=== PATIENT | male | born 1955 | race African-American/Black ===

== ENCOUNTER 2018-03-27 21:23 | Observation (INO) ==
[2018-03-27] MEDS ORDERED: ASPIRIN EC 325 MG TABLET PO STA (22:01)
[2018-03-27] MEDS ORDERED: NITROGLYCERIN SL 0.4 MG TABLET SL STA (22:10)
[2018-03-27 22:12] LABS: Basophils % 0.6 % (0.0-0.8); Eosinophils # 0.3 10*3/uL (0.0-0.87); Hematocrit 32.4 VOL% (42.0-52.0); Hemoglobin 10.1 GM/DL (14.0-18.0); Immature Granulocytes % 0.4 %; Immature Granulocytes Absolute 0.03 #; Lymphocytes # 1.4 10*3/uL (1.4-4.0); Lymphocytes % 19.7 % (21.2-54.2); Mean Corpuscular HGB Conc 31.2 GM/DL (32-36); Mean Corpuscular Hemoglobin 27 PG (27-34); Mean Corpuscular Volume 85.3 FL (87-102); Mean Platelet Volume 11.3 FL (9.6-12.0); Monocytes # 0.5 10*3/uL (0.11-0.8); Monocytes % 7.9 % (1.7-12.7); Neutrophils # 4.6 10*3/uL (1.4-7.4); Neutrophils % 66.4 % (38.7-73.9); Platelet Count 233 T/CUMM (130-400); Red Cell Distribution Width 18.3 % (9.3-17.3); White Blood Count 6.9 T/CUMM (4-12)
[2018-03-27 22:39] LABS: Alanine Aminotransferase 17 U/L (16-61); Alkaline Phosphatase 75 U/L (45-117); Aspartate Amino Transferase 22 U/L (0-37); Bilirubin,Total < 0.39 MG/DL (0.2-1.0); Blood Urea Nitrogen 15 MG/DL (7-18); Calcium 8.6 MG/DL (8.5-10.1); Glucose 130 MG/DL (74-106); Osmolality,Calculated 277.7 MOS/KG (273-304); Potassium 4.3 MMOL/L (3.5-5.1); Sodium 138 MMOL/L (136-145); Total Protein 6.9 G/DL (6.4-8.3)
[2018-03-27 22:41] LABS: Troponin I 0.052 NG/ML (0.00-0.045)
[2018-03-27] MEDS ORDERED: ACETAMINOPHEN 325 MG TABLET PO PRN (22:57)
[2018-03-27] MEDS ORDERED: MORPHINE 4 MG/1 ML VIAL IV PRN (22:57)
[2018-03-27] MEDS ORDERED: ONDANSETRON 4 MG/2 ML VIAL IV PRN (22:57)
[2018-03-27] MEDS ORDERED: DEXTROSE 50% 25 GM/50 ML VIAL IV PRN (23:06)
[2018-03-27] MEDS ORDERED: GLUCAGON 1 MG VIAL IM PRN (23:06)
[2018-03-27 23:23] LABS: Risk Ratio 2.34; VLDL CHOLESTEROL 14.4 MG/DL
[2018-03-28] MEDS: NITROGLYCERIN 2% OINT 1 INCH/GM PACK TOP SCH ×2 (01:19→06:42)
[2018-03-28] MEDS ORDERED: INSULIN REGULAR 100 UNIT/ML SUBCUT SCH (07:30)
[2018-03-28 07:56] VITALS: BP 172/87
[2018-03-28] MEDS ORDERED: hydrALAZINE 20 MG/1 ML VIAL IV PRN (08:18)
[2018-03-28] MEDS ORDERED: ISOSORBIDE MONONITRATE 30 MG TABLET PO SCH (09:00)
[2018-03-28] MEDS ORDERED: CLOPIDOGREL 75 MG TABLET PO SCH (09:00)
[2018-03-28] MEDS ORDERED: ASPIRIN EC 81 MG TABLET PO SCH (09:00)
[2018-03-28] MEDS ORDERED: CARVEDILOL 6.25 MG TABLET PO SCH (09:00)
[2018-03-28] MEDS ORDERED: ASPIRIN EC 325 MG TABLET PO SCH (09:00)
[2018-03-28] MEDS ORDERED: ENOXAPARIN 40 MG/0.4 ML SYRINGE SUBCUT SCH (09:00)
[2018-03-28] MEDS ORDERED: LOSARTAN 50 MG TABLET PO SCH (09:00)
[2018-03-28] MEDS ORDERED: PRAVASTATIN 40 MG TABLET PO SCH (21:00)
== END 2018-03-28 10:56 ==
LOC: N.ED 21:23 → N.EDINP 21:23 → N.TELEN 23:32
PROVIDERS: ADMIT Internal Medicine; ATTEND Internal Medicine

== ENCOUNTER 2020-08-20 10:11 | Inpatient (IN) ==
[2020-08-20 11:48] LABS: Amorphous Crystals,Urine Occasional /HPF (Few); Bilirubin,Urine Negative (Negative); Blood, Urine Large mg/dL (Negative); Glucose,Urine (UA) Negative (Negative); Hyaline Casts,Urine 15 /LPF (0-3); Ketones,Urine Negative (Negative); Nitrite,Urine Negative (Negative); Protein,Urine >=500 MG/DL; RBC,Urine 474 /HPF (0-4); Squamous Epithelial Cell,Urine Occasional /HPF (0-10); Urine Appearance CLOUDY (Clear); Urine Color Amber (Yellow); Urine Specific Gravity 1.023 (1.001-1.035)
[2020-08-20 12:08] LABS: Barbiturates Screen,Urine Negative (Negative); Benzodiazepines Screen,Urine Negative (Negative); Cannabinoid Screen,Urine Negative (Negative); Opiate Screen,Urine Negative (Negative); Phencyclidine Screen,Urine Negative (Negative)
[2020-08-20 12:36] LABS: Basophils % 0.1 % (0.0-0.8); Hematocrit 30.2 VOL% (42.0-52.0); Hemoglobin 9.1 GM/DL (14.0-18.0); Immature Granulocytes % 0.7 %; Immature Granulocytes Absolute 0.05 #; Lymphocytes # 0.7 10*3/uL (1.4-4.0); Lymphocytes % 9.7 % (21.2-54.2); Mean Corpuscular HGB Conc 30.1 GM/DL (32-36); Mean Corpuscular Volume 96.5 FL (87-102); Mean Platelet Volume 11.4 FL (9.6-12.0); Monocytes % 5.2 % (1.7-12.7); Neutrophils % 84.3 % (38.7-73.9); Platelet Count 255 T/CUMM (130-400); Red Blood Count 3.13 MC/CUMM (3.8-5.5); Red Cell Distribution Width 18.5 % (9.3-17.3); White Blood Count 6.7 T/CUMM (4-12)
[2020-08-20 12:56] LABS: Alanine Aminotransferase 17 U/L (16-61); Albumin 3.6 G/DL (3.4-5.0); Alkaline Phosphatase 73 U/L (45-117); Aspartate Amino Transferase 17 U/L (0-37); Bilirubin,Total < 0.39 MG/DL (0.2-1.0); Blood Urea Nitrogen 33 MG/DL (7-18); Carbon Dioxide 24 MMOL/L (21-32); Estimated Glom Filtration Rate 35 ML/MIN; Glucose 95 MG/DL (74-106); INR 1.1; Osmolality,Calculated 274.2 MOS/KG (273-304); PT Patient Result 11.9 SECS (9.8-11.9); Partial Thromboplastin Time 28.5 SECS (23.9-33.8); Sodium 134 MMOL/L (136-145); Total Protein 7.8 G/DL (6.4-8.3)
[2020-08-20 13:01] LABS: Potassium 6.4 MMOL/L (3.5-5.1)
[2020-08-20 13:02] LABS: ABG Base Excess -1.7 MMOL/L (-2.5-2.5); ABG Oxygen Saturation 99.5 % (95-100); ABG TCO2 28.7 MMOL/L (23-27)
[2020-08-20] MEDS ORDERED: SODIUM BICARBONATE 50 MEQ/50 ML VIAL IV STA (13:05)
[2020-08-20] MEDS ORDERED: DEXTROSE 50% 25 GM/50 ML VIAL IV STA (13:05)
[2020-08-20] MEDS ORDERED: INSULIN REGULAR 100 UNIT/ML IV STA (13:05)
[2020-08-20] MEDS ORDERED: SODIUM CHLORIDE 0.9% 1,000 ML IV STA (13:06)
[2020-08-20 13:07] LABS: ABG PH 7.119 (7.35-7.45)
[2020-08-20 13:08] LABS: ABG PCO2 92.1 MM HG (35-48)
[2020-08-20 13:12] LABS: Platelet Estimate Normal
[2020-08-20 13:13] LABS: Anisocytosis 2+; Macrocytosis 1+; Ovalocytes Few
[2020-08-20] MEDS ORDERED: ONDANSETRON 4 MG/2 ML VIAL IV PRN (14:11)
[2020-08-20] MEDS ORDERED: ALBUTEROL 2.5 MG/3 ML NEB RESP TX PRN (14:11)
[2020-08-20] MEDS ORDERED: FUROSEMIDE 40 MG/4 ML VIAL IV STA (14:15)
[2020-08-20 15:27] LABS: ABG Base Excess -0.4 MMOL/L (-2.5-2.5); ABG Oxygen Saturation 95.3 % (95-100); ABG PCO2 43.2 MM HG (35-48); ABG PH 7.369 (7.35-7.45); ABG PO2 78.6 MM HG (80-95); ABG TCO2 23.1 MMOL/L (23-27)
[2020-08-20] MEDS: ENOXAPARIN 30 MG/0.3 ML SYRINGE SUBCUT SCH (17:00)
[2020-08-20] MEDS: PANTOPRAZOLE 40 MG VIAL IV SCH (17:05)
[2020-08-20 20:52] LABS: ABG Base Excess -1.4 MMOL/L (-2.5-2.5); ABG HCO3 23.2 MMOL/L (20-26); ABG Oxygen Saturation 98.9 % (95-100); ABG PCO2 67.8 MM HG (35-48); ABG PH 7.217 (7.35-7.45); Allen Test Positive; Pt O2 Delivery Device BIPAP
[2020-08-20 21:24] LABS: Alanine Aminotransferase 19 U/L (16-61); Albumin 3.7 G/DL (3.4-5.0); Alkaline Phosphatase 78 U/L (45-117); Aspartate Amino Transferase 22 U/L (0-37); Bilirubin,Total < 0.39 MG/DL (0.2-1.0); Blood Urea Nitrogen 38 MG/DL (7-18); Calcium 8.3 MG/DL (8.5-10.1); Carbon Dioxide 26 MMOL/L (21-32); Estimated Glom Filtration Rate 32 ML/MIN; Glucose 82 MG/DL (74-106); Osmolality,Calculated 280.8 MOS/KG (273-304); Sodium 137 MMOL/L (136-145); Total Protein 8.5 G/DL (6.4-8.3)
[2020-08-20 21:29] LABS: Potassium 6.1 MMOL/L (3.5-5.1)
[2020-08-20] MEDS ORDERED: MAGNESIUM SULF RIDER 4 GM in PREMIX 1 EACH IV PRN (21:47)
[2020-08-20] MEDS ORDERED: MAGNESIUM SULF RIDER 2 GM in PREMIX 1 EACH IV PRN (21:47)
[2020-08-20] MEDS ORDERED: DEXTROSE 50% 25 GM/50 ML VIAL IV PRN (21:48)
[2020-08-20] MEDS ORDERED: CALCIUM GLUCONATE IV ONE (21:50)
[2020-08-20] MEDS ORDERED: SODIUM BICARB IV ONE (21:50)
[2020-08-20] MEDS ORDERED: INSULIN REGULAR IV ONE (21:50)
[2020-08-20] MEDS ORDERED: [UNRECOGNIZED DRUG - OTHER] IV ONE (21:50)
[2020-08-20 21:56] LABS: ABG Base Excess -1.3 MMOL/L (-2.5-2.5); ABG HCO3 23.3 MMOL/L (20-26); ABG Oxygen Saturation 97.3 % (95-100); ABG TCO2 26.8 MMOL/L (23-27); Allen Test Positive; Pt O2 Delivery Device BIPAP
[2020-08-20 22:02] LABS: ABG PCO2 73.5 MM HG (35-48); ABG PH 7.194 (7.35-7.45)
[2020-08-20] MEDS ORDERED: ETOMIDATE 20 MG/10 ML VIAL IV ONE ×2 (22:03→22:15)
[2020-08-20] MEDS ORDERED: ROCURONIUM 100 MG/10 ML VIAL IV ONE ×2 (22:03→22:16)
[2020-08-20 23:37] LABS: Allen Test Positive; Pt O2 Delivery Device Ventilator
[2020-08-20 23:40] LABS: ABG Base Excess 3.1 MMOL/L (-2.5-2.5); ABG HCO3 27.2 MMOL/L (20-26); ABG PCO2 33.9 MM HG (35-48); ABG PH 7.497 (7.35-7.45); ABG TCO2 24.2 MMOL/L (23-27)
[2020-08-21] MEDS: PHENYLEPHRINE DRIP 40 MG/250 ML PREMIX IV PRN (00:34)
[2020-08-21] MEDS: ATROPINE 1 MG/10 ML SYRINGE IV PRN (01:12)
[2020-08-21] MEDS ORDERED: ATROPINE 1 MG/10 ML SYRINGE ONE (01:12)
[2020-08-21 01:33] LABS: Albumin 3.3 G/DL (3.4-5.0); Bilirubin,Total 0.5 MG/DL (0.2-1.0); Calcium 8.4 MG/DL (8.5-10.1); Osmolality,Calculated 282.8 MOS/KG (273-304); Potassium 5.1 MMOL/L (3.5-5.1); Thyroid Stimulating Hormone 48.5 uIU/ml (0.358-3.74); Total Protein 7.3 G/DL (6.4-8.3)
[2020-08-21] MEDS: MIDAZOLAM 100 MG in SODIUM CHLORIDE 0.9% 80 ML IV PRN ×2 (02:59→23:39)
[2020-08-21] MEDS ORDERED: ETOMIDATE 20 MG/10 ML VIAL IV ONE ×2 (04:44→04:50)
[2020-08-21] MEDS ORDERED: ROCURONIUM 100 MG/10 ML VIAL IV ONE ×2 (04:45→04:52)
[2020-08-21 06:48] LABS: Basophils % 0.3 % (0.0-0.8); Eosinophils % 0.3 % (0.00-10.9); Hematocrit 27.8 VOL% (42.0-52.0); Hemoglobin 8.8 GM/DL (14.0-18.0); Immature Granulocytes % 0.9 %; Immature Granulocytes Absolute 0.08 #; Lymphocytes # 1.2 10*3/uL (1.4-4.0); Lymphocytes % 12.6 % (21.2-54.2); Mean Corpuscular HGB Conc 31.7 GM/DL (32-36); Mean Corpuscular Volume 90.6 FL (87-102); Mean Platelet Volume 11.6 FL (9.6-12.0); Monocytes % 6.1 % (1.7-12.7); Neutrophils % 79.8 % (38.7-73.9); Platelet Count 342 T/CUMM (130-400); Red Blood Count 3.07 MC/CUMM (3.8-5.5); Red Cell Distribution Width 18.6 % (9.3-17.3); White Blood Count 9.4 T/CUMM (4-12)
[2020-08-21 07:15] LABS: Eosinophils 1 % (0-10); Hypochromasia 1+; Lymphocytes 9 % (20-55); Microcytosis 1+; Ovalocytes Slight; Platelet Estimate Adequate; Segmented Neutrophils 84 % (50-85); Total Cells Counted 100
[2020-08-21] MEDS: CLOPIDOGREL 75 MG TABLET PO SCH (11:30)
[2020-08-21] MEDS: HYDROCORTISONE 100 MG VIAL IV SCH ×2 (11:32→18:37)
[2020-08-21] MEDS: LEVOTHYROXINE 100 MCG VIAL IV SCH (11:34)
[2020-08-21] MEDS ORDERED: MIDAZOLAM 2 MG/2 ML VIAL IV ONE (14:50)
[2020-08-21] MEDS ORDERED: MIDAZOLAM 2 MG/2 ML VIAL ONE (14:54)
[2020-08-21] MEDS: PANTOPRAZOLE 40 MG VIAL IV SCH (15:56)
[2020-08-21] MEDS: ENOXAPARIN 30 MG/0.3 ML SYRINGE SUBCUT SCH (15:56)
[2020-08-21] MEDS: INSULIN REGULAR 100 UNIT/ML SUBCUT SCH ×2 (20:14→23:42)
[2020-08-21] MEDS: AMIODARONE 200 MG TABLET PO SCH (20:15)
[2020-08-21] MEDS: MORPHINE 4 MG/1 ML VIAL IV PRN (23:50)
[2020-08-22] MEDS: HYDROCORTISONE 100 MG VIAL IV SCH ×3 (02:12→18:11)
[2020-08-22] MEDS: INSULIN REGULAR 100 UNIT/ML SUBCUT SCH ×5 (04:02→19:33)
[2020-08-22 04:35] LABS: Basophils % 0.1 % (0.0-0.8); Eosinophils % 0.2 % (0.00-10.9); Hematocrit 27.4 VOL% (42.0-52.0); Hemoglobin 8.2 GM/DL (14.0-18.0); Immature Granulocytes % 0.6 %; Immature Granulocytes Absolute 0.05 #; Lymphocytes # 0.7 10*3/uL (1.4-4.0); Lymphocytes % 8.5 % (21.2-54.2); Mean Corpuscular HGB Conc 29.9 GM/DL (32-36); Mean Corpuscular Volume 93.8 FL (87-102); Monocytes % 7.2 % (1.7-12.7); Neutrophils % 83.4 % (38.7-73.9); Platelet Count 362 T/CUMM (130-400); Red Blood Count 2.92 MC/CUMM (3.8-5.5); Red Cell Distribution Width 18.9 % (9.3-17.3); White Blood Count 8.1 T/CUMM (4-12)
[2020-08-22 04:55] LABS: ABG Base Excess 4.5 MMOL/L (-2.5-2.5); ABG HCO3 28.5 MMOL/L (20-26); ABG Oxygen Saturation 98.7 % (95-100); ABG PCO2 36.5 MM HG (35-48); ABG PH 7.493 (7.35-7.45); ABG TCO2 26.1 MMOL/L (23-27)
[2020-08-22 05:21] LABS: Calcium 8.2 MG/DL (8.5-10.1); Osmolality,Calculated 286.4 MOS/KG (273-304); Potassium 4.2 MMOL/L (3.5-5.1)
[2020-08-22] MEDS: LEVOTHYROXINE 100 MCG VIAL IV SCH (06:01)
[2020-08-22] MEDS: MORPHINE 4 MG/1 ML VIAL IV PRN (07:12)
[2020-08-22] MEDS ORDERED: INFLUENZA VIRUS VACCINE 0.5 ML SYRINGE IM ONE (07:15)
[2020-08-22] MEDS: AMIODARONE 200 MG TABLET PO SCH ×2 (08:16→21:53)
[2020-08-22] MEDS: CLOPIDOGREL 75 MG TABLET PO SCH (08:16)
[2020-08-22] MEDS: MIDAZOLAM 100 MG in SODIUM CHLORIDE 0.9% 80 ML IV PRN ×2 (11:37→21:50)
[2020-08-22] MEDS: fentaNYL INJ 1,250 MCG in SODIUM CHLORIDE 0.9% 225 ML IV PRN (14:00)
[2020-08-22] MEDS: PANTOPRAZOLE 40 MG VIAL IV SCH (14:01)
[2020-08-22] MEDS: ENOXAPARIN 30 MG/0.3 ML SYRINGE SUBCUT SCH (14:01)
[2020-08-22] MEDS: PHENYLEPHRINE DRIP 40 MG/250 ML PREMIX IV PRN (19:01)
[2020-08-22] MEDS: ATROPINE 1 MG/10 ML SYRINGE IV PRN (19:48)
[2020-08-22] MEDS: DOPamine 800 MG/250 ML PREMIX IV PRN (21:14)
[2020-08-22 21:22] LABS: Calcium 8.5 MG/DL (8.5-10.1); Osmolality,Calculated 291.1 MOS/KG (273-304); Potassium 4.2 MMOL/L (3.5-5.1)
[2020-08-23] MEDS: INSULIN REGULAR 100 UNIT/ML SUBCUT SCH ×6 (00:14→20:45)
[2020-08-23] MEDS: HYDROCORTISONE 100 MG VIAL IV SCH ×3 (02:20→21:38)
[2020-08-23 04:17] LABS: Basophils % 0.2 % (0.0-0.8); Hematocrit 28.7 VOL% (42.0-52.0); Hemoglobin 8.6 GM/DL (14.0-18.0); Immature Granulocytes % 0.6 %; Immature Granulocytes Absolute 0.07 #; Lymphocytes # 1.1 10*3/uL (1.4-4.0); Lymphocytes % 9.7 % (21.2-54.2); Mean Corpuscular Volume 92.9 FL (87-102); Mean Platelet Volume 10.9 FL (9.6-12.0); Monocytes % 8.9 % (1.7-12.7); Neutrophils % 80.6 % (38.7-73.9); Platelet Count 410 T/CUMM (130-400); Red Blood Count 3.09 MC/CUMM (3.8-5.5); Red Cell Distribution Width 18.9 % (9.3-17.3); White Blood Count 10.9 T/CUMM (4-12)
[2020-08-23 04:28] LABS: Calcium 8.2 MG/DL (8.5-10.1); Osmolality,Calculated 288.3 MOS/KG (273-304); Potassium 3.7 MMOL/L (3.5-5.1)
[2020-08-23 04:59] LABS: ABG Base Excess 6.1 MMOL/L (-2.5-2.5); ABG Oxygen Saturation 98.1 % (95-100); ABG PCO2 31.2 MM HG (35-48); ABG PH 7.565 (7.35-7.45); ABG PO2 92.2 MM HG (80-95); Allen Test Positive; Pt O2 Delivery Device Ventilator
[2020-08-23] MEDS: LEVOTHYROXINE 100 MCG VIAL IV SCH (05:50)
[2020-08-23] MEDS: ACETYLCYSTEINE 20% 800 MG/4 ML VIAL RESP TX SCH ×3 (06:56→18:10)
[2020-08-23] MEDS: ALBUTEROL/IPRATROPIUM 3 ML NEB RESP TX SCH ×4 (06:56→18:10)
[2020-08-23] MEDS: CLOPIDOGREL 75 MG TABLET PO SCH (08:59)
[2020-08-23] MEDS: FUROSEMIDE 40 MG/4 ML VIAL IV SCH ×2 (09:00→16:18)
[2020-08-23] MEDS: AMIODARONE 200 MG TABLET PO SCH ×2 (09:00→21:39)
[2020-08-23] MEDS ORDERED: FUROSEMIDE 40 MG/4 ML VIAL IV SCH (09:00)
[2020-08-23] MEDS: MIDAZOLAM 100 MG in SODIUM CHLORIDE 0.9% 80 ML IV PRN ×2 (09:08→22:57)
[2020-08-23] MEDS: fentaNYL INJ 1,250 MCG in SODIUM CHLORIDE 0.9% 225 ML IV PRN (10:45)
[2020-08-23] MEDS: PANTOPRAZOLE 40 MG VIAL IV SCH (16:16)
[2020-08-23] MEDS: ENOXAPARIN 30 MG/0.3 ML SYRINGE SUBCUT SCH (16:18)
[2020-08-23] MEDS: ATROPINE 1 MG/10 ML SYRINGE IV PRN (16:27)
[2020-08-24] MEDS: INSULIN REGULAR 100 UNIT/ML SUBCUT SCH ×5 (00:39→18:37)
[2020-08-24] MEDS: ALBUTEROL/IPRATROPIUM 3 ML NEB RESP TX SCH ×7 (00:52→19:43)
[2020-08-24] MEDS: ACETYLCYSTEINE 20% 800 MG/4 ML VIAL RESP TX SCH ×4 (00:52→19:43)
[2020-08-24 03:27] LABS: ABG Base Excess 7.2 MMOL/L (-2.5-2.5); ABG HCO3 30.7 MMOL/L (20-26); ABG Oxygen Saturation 96.3 % (95-100); ABG PCO2 39.1 MM HG (35-48); ABG PH 7.513 (7.35-7.45); ABG PO2 83.2 MM HG (80-95); ABG TCO2 31.9 MMOL/L (23-27)
[2020-08-24 04:26] LABS: Basophils % 0.2 % (0.0-0.8); Eosinophils % 0.5 % (0.00-10.9); Hemoglobin 8.4 GM/DL (14.0-18.0); Immature Granulocytes % 0.4 %; Immature Granulocytes Absolute 0.03 #; Lymphocytes # 1.2 10*3/uL (1.4-4.0); Lymphocytes % 14.3 % (21.2-54.2); Mean Corpuscular HGB Conc 31.1 GM/DL (32-36); Mean Corpuscular Volume 91.5 FL (87-102); Mean Platelet Volume 10.7 FL (9.6-12.0); Monocytes % 9.6 % (1.7-12.7); Platelet Count 378 T/CUMM (130-400); Red Blood Count 2.95 MC/CUMM (3.8-5.5); Red Cell Distribution Width 18.6 % (9.3-17.3); White Blood Count 8.2 T/CUMM (4-12)
[2020-08-24] MEDS: fentaNYL INJ 1,250 MCG in SODIUM CHLORIDE 0.9% 225 ML IV PRN ×2 (04:44→18:57)
[2020-08-24 04:49] LABS: Calcium 8.1 MG/DL (8.5-10.1); Potassium 3.2 MMOL/L (3.5-5.1)
[2020-08-24] MEDS: LEVOTHYROXINE 100 MCG VIAL IV SCH (07:09)
[2020-08-24] MEDS: HYDROCORTISONE 100 MG VIAL IV SCH ×3 (09:54→21:50)
[2020-08-24] MEDS: MIDAZOLAM 100 MG in SODIUM CHLORIDE 0.9% 80 ML IV PRN ×2 (09:55→21:59)
[2020-08-24] MEDS: CLOPIDOGREL 75 MG TABLET PO SCH (10:14)
[2020-08-24] MEDS: AMIODARONE 200 MG TABLET PO SCH ×2 (10:14→21:50)
[2020-08-24] MEDS: POTASSIUM CHLORIDE 20 MEQ/15 ML UDCUP PER TUBE SCH ×4 (10:14→21:50)
[2020-08-24] MEDS: FUROSEMIDE 40 MG/4 ML VIAL IV SCH ×2 (10:16→17:15)
[2020-08-24] MEDS: ENOXAPARIN 30 MG/0.3 ML SYRINGE SUBCUT SCH (14:54)
[2020-08-24] MEDS: PANTOPRAZOLE 40 MG VIAL IV SCH (14:54)
[2020-08-24] MEDS: DOPamine 800 MG/250 ML PREMIX IV PRN (23:35)
[2020-08-25] MEDS: INSULIN REGULAR 100 UNIT/ML SUBCUT SCH ×5 (00:35→23:51)
[2020-08-25] MEDS: ACETYLCYSTEINE 20% 800 MG/4 ML VIAL RESP TX SCH ×5 (00:50→23:50)
[2020-08-25] MEDS: ALBUTEROL/IPRATROPIUM 3 ML NEB RESP TX SCH ×7 (00:50→23:50)
[2020-08-25] MEDS: fentaNYL INJ 1,250 MCG in SODIUM CHLORIDE 0.9% 225 ML IV PRN (02:26)
[2020-08-25 04:08] LABS: Basophils % 0.1 % (0.0-0.8); Eosinophils % 0.5 % (0.00-10.9); Hematocrit 29.6 VOL% (42.0-52.0); Hemoglobin 9.1 GM/DL (14.0-18.0); Immature Granulocytes % 0.8 %; Immature Granulocytes Absolute 0.06 #; Lymphocytes # 0.8 10*3/uL (1.4-4.0); Lymphocytes % 9.5 % (21.2-54.2); Mean Corpuscular HGB Conc 30.7 GM/DL (32-36); Mean Corpuscular Volume 92.8 FL (87-102); Mean Platelet Volume 10.8 FL (9.6-12.0); Monocytes % 7.3 % (1.7-12.7); Neutrophils % 81.8 % (38.7-73.9); Platelet Count 405 T/CUMM (130-400); Red Blood Count 3.19 MC/CUMM (3.8-5.5); Red Cell Distribution Width 18.5 % (9.3-17.3)
[2020-08-25 04:10] LABS: ABG Base Excess 9.3 MMOL/L (-2.5-2.5); ABG HCO3 33.1 MMOL/L (20-26); ABG PCO2 46.1 MM HG (35-48); ABG PH 7.476 (7.35-7.45); ABG TCO2 31.2 MMOL/L (23-27)
[2020-08-25 05:13] LABS: Calcium 8.8 MG/DL (8.5-10.1); Osmolality,Calculated 286.1 MOS/KG (273-304); Potassium 3.7 MMOL/L (3.5-5.1)
[2020-08-25] MEDS: LEVOTHYROXINE 100 MCG VIAL IV SCH (05:58)
[2020-08-25] MEDS: MIDAZOLAM 100 MG in SODIUM CHLORIDE 0.9% 80 ML IV PRN (08:22)
[2020-08-25] MEDS: HYDROCORTISONE 100 MG VIAL IV SCH ×2 (10:09→21:44)
[2020-08-25] MEDS: CLOPIDOGREL 75 MG TABLET PO SCH (10:09)
[2020-08-25] MEDS: AMIODARONE 200 MG TABLET PO SCH ×2 (10:09→21:44)
[2020-08-25] MEDS: FUROSEMIDE 40 MG/4 ML VIAL IV SCH ×2 (10:11→16:49)
[2020-08-25] MEDS ORDERED: HALOPERIDOL 5 MG/ML AMP IM PRN (16:26)
[2020-08-25] MEDS: PANTOPRAZOLE 40 MG VIAL IV SCH (16:49)
[2020-08-25] MEDS: ENOXAPARIN 40 MG/0.4 ML SYRINGE SUBCUT SCH (16:49)
[2020-08-25] MEDS: HALOPERIDOL 5 MG/ML AMP IM PRN (21:44)
[2020-08-26] MEDS: HALOPERIDOL 5 MG/ML AMP IM PRN (00:44)
[2020-08-26] MEDS: ALBUTEROL/IPRATROPIUM 3 ML NEB RESP TX SCH ×6 (03:00→23:55)
[2020-08-26 04:45] LABS: Basophils % 0.1 % (0.0-0.8); Eosinophils % 0.3 % (0.00-10.9); Immature Granulocytes % 0.7 %; Immature Granulocytes Absolute 0.07 #; Lymphocytes # 0.9 10*3/uL (1.4-4.0); Mean Corpuscular Volume 95.8 FL (87-102); Mean Platelet Volume 10.4 FL (9.6-12.0); Neutrophils % 83.9 % (38.7-73.9); Platelet Count 349 T/CUMM (130-400); Red Blood Count 3.13 MC/CUMM (3.8-5.5); White Blood Count 9.9 T/CUMM (4-12)
[2020-08-26 05:06] LABS: Calcium 8.4 MG/DL (8.5-10.1); Osmolality,Calculated 290.8 MOS/KG (273-304); Potassium 3.3 MMOL/L (3.5-5.1)
[2020-08-26] MEDS: INSULIN REGULAR 100 UNIT/ML SUBCUT SCH ×3 (05:42→17:39)
[2020-08-26] MEDS: LEVOTHYROXINE 100 MCG VIAL IV SCH (06:09)
[2020-08-26] MEDS: ACETYLCYSTEINE 20% 800 MG/4 ML VIAL RESP TX SCH ×2 (07:10→13:25)
[2020-08-26] MEDS: CLOPIDOGREL 75 MG TABLET PO SCH (08:02)
[2020-08-26] MEDS: FUROSEMIDE 40 MG/4 ML VIAL IV SCH (08:02)
[2020-08-26] MEDS: AMIODARONE 200 MG TABLET PO SCH ×2 (08:02→20:53)
[2020-08-26] MEDS: HYDROCORTISONE 100 MG VIAL IV SCH (08:02)
[2020-08-26] MEDS ORDERED: POTASSIUM CHLORIDE 20 MEQ TABLET PO ONE (09:30)
[2020-08-26] MEDS: PANTOPRAZOLE 40 MG TABLET PO SCH (09:34)
[2020-08-26] MEDS: ENOXAPARIN 40 MG/0.4 ML SYRINGE SUBCUT SCH (15:50)
[2020-08-26] MEDS: ATORVASTATIN 40 MG TABLET PO SCH (18:12)
[2020-08-27] MEDS: ALBUTEROL/IPRATROPIUM 3 ML NEB RESP TX SCH ×6 (03:24→23:45)
[2020-08-27 05:20] LABS: Basophils % 0.3 % (0.0-0.8); Eosinophils # 0.2 10*3/uL (0.0-0.87); Eosinophils % 2.5 % (0.00-10.9); Hemoglobin 8.2 GM/DL (14.0-18.0); Immature Granulocytes % 0.6 %; Immature Granulocytes Absolute 0.04 #; Lymphocytes # 1.1 10*3/uL (1.4-4.0); Lymphocytes % 14.8 % (21.2-54.2); Mean Corpuscular HGB Conc 29.3 GM/DL (32-36); Mean Corpuscular Volume 96.2 FL (87-102); Mean Platelet Volume 10.9 FL (9.6-12.0); Monocytes % 9.1 % (1.7-12.7); Neutrophils % 72.7 % (38.7-73.9); Platelet Count 338 T/CUMM (130-400); Red Blood Count 2.91 MC/CUMM (3.8-5.5); Red Cell Distribution Width 17.4 % (9.3-17.3); White Blood Count 7.2 T/CUMM (4-12)
[2020-08-27 05:47] LABS: Calcium 8.1 MG/DL (8.5-10.1); Potassium 3.1 MMOL/L (3.5-5.1)
[2020-08-27] MEDS: INSULIN REGULAR 100 UNIT/ML SUBCUT SCH ×4 (06:12→17:03)
[2020-08-27] MEDS: LEVOTHYROXINE 100 MCG VIAL IV SCH (06:26)
[2020-08-27] MEDS: POTASSIUM CHLORIDE 20 MEQ TABLET PO PRN ×4 (06:28→17:04)
[2020-08-27] MEDS: AMIODARONE 200 MG TABLET PO SCH ×2 (09:13→21:09)
[2020-08-27] MEDS: PANTOPRAZOLE 40 MG TABLET PO SCH (09:14)
[2020-08-27] MEDS: CLOPIDOGREL 75 MG TABLET PO SCH (09:14)
[2020-08-27] MEDS: TAMSULOSIN 0.4 MG CAPSULE PO SCH (09:14)
[2020-08-27] MEDS: FUROSEMIDE 40 MG/4 ML VIAL IV SCH (09:26)
[2020-08-27 11:03] LABS: % Iron Saturation 25.2 % (18-50); Ferritin 120.5 ng/ml (26-388)
[2020-08-27 12:02] LABS: Basophils % 0.3 % (0.0-0.8); Eosinophils # 0.1 10*3/uL (0.0-0.87); Eosinophils % 1.8 % (0.00-10.9); Hematocrit 28.5 VOL% (42.0-52.0); Hemoglobin 8.7 GM/DL (14.0-18.0); Immature Granulocytes % 0.4 %; Immature Granulocytes Absolute 0.03 #; Lymphocytes # 1.1 10*3/uL (1.4-4.0); Lymphocytes % 15.5 % (21.2-54.2); Mean Corpuscular HGB Conc 30.5 GM/DL (32-36); Mean Corpuscular Volume 94.7 FL (87-102); Mean Platelet Volume 10.8 FL (9.6-12.0); Monocytes % 9.8 % (1.7-12.7); Neutrophils % 72.2 % (38.7-73.9); Platelet Count 341 T/CUMM (130-400); Red Blood Count 3.01 MC/CUMM (3.8-5.5); Red Cell Distribution Width 17.3 % (9.3-17.3); White Blood Count 7.2 T/CUMM (4-12)
[2020-08-27 13:05] LABS: Folate 6.8 NG/ML (5.38-24.0); Vitamin B12 1030 PG/ML (211-911)
[2020-08-27 13:07] LABS: Sedimentation Rate-Westergren 72 MM/HR (0-20)
[2020-08-27] MEDS: ENOXAPARIN 40 MG/0.4 ML SYRINGE SUBCUT SCH (14:44)
[2020-08-27] MEDS: ATORVASTATIN 40 MG TABLET PO SCH (17:03)
[2020-08-28] MEDS: INSULIN REGULAR 100 UNIT/ML SUBCUT SCH ×3 (00:09→12:00)
[2020-08-28] MEDS: ALBUTEROL/IPRATROPIUM 3 ML NEB RESP TX SCH ×4 (03:00→14:00)
[2020-08-28 05:56] LABS: Basophils % 0.4 % (0.0-0.8); Eosinophils # 0.2 10*3/uL (0.0-0.87); Eosinophils % 2.9 % (0.00-10.9); Hematocrit 27.9 VOL% (42.0-52.0); Hemoglobin 8.1 GM/DL (14.0-18.0); Immature Granulocytes % 0.8 %; Immature Granulocytes Absolute 0.06 #; Lymphocytes # 1.2 10*3/uL (1.4-4.0); Lymphocytes % 16.8 % (21.2-54.2); Mean Corpuscular Volume 97.6 FL (87-102); Monocytes % 10.9 % (1.7-12.7); Neutrophils % 68.2 % (38.7-73.9); Platelet Count 331 T/CUMM (130-400); Red Blood Count 2.86 MC/CUMM (3.8-5.5); Red Cell Distribution Width 17.2 % (9.3-17.3); White Blood Count 7.1 T/CUMM (4-12)
[2020-08-28 06:21] LABS: Calcium 8.1 MG/DL (8.5-10.1); Osmolality,Calculated 283.1 MOS/KG (273-304)
[2020-08-28] MEDS ORDERED: LEVOTHYROXINE 100 MCG TABLET PO SCH (06:30)
[2020-08-28 09:02] LABS: Hemoglobin A1 (Alkaline) 97.9 % (96.5-98.5); Hemoglobin A2 (Alkaline) 2.1 % (1.5-3.5)
[2020-08-28] MEDS: AMIODARONE 200 MG TABLET PO SCH (09:07)
[2020-08-28] MEDS: CLOPIDOGREL 75 MG TABLET PO SCH (09:07)
[2020-08-28] MEDS: TAMSULOSIN 0.4 MG CAPSULE PO SCH (09:07)
[2020-08-28] MEDS: FUROSEMIDE 40 MG/4 ML VIAL IV SCH (09:08)
[2020-08-28 11:44] VITALS: BP 108/51
[2020-08-28] MEDS ORDERED: INFLUENZA VIRUS VACCINE 0.5 ML SYRINGE IM ONE (12:00)
[2020-08-28] MEDS ORDERED: FERROUS SULFATE 325 MG TABLET PO SCH (17:00)
== END 2020-08-28 14:00 | DRG 207 ==
LOC: EDBD → EDUNIT# → N.ED 10:11 → SUATTDRO 13:58 → N.EDINP 13:58 → N.ICU 20:13 → N.5E 08-26 16:17
PROVIDERS: ADMIT Internal Medicine; ATTEND Internal Medicine